=== PATIENT | male | born 1965 | race Caucasian/White ===

== ENCOUNTER 2020-09-29 14:18 | Emergency (ER) | payer BC ==
[2020-09-29 14:45] VITALS: BP 110/78; PULSE 78; RESP 16; TEMP 98
--- NOTE | 2020-09-29 15:51 | XR ---
Right foot HISTORY: Laceration 3 views of the right foot There is a comminuted fracture of distal phalanx of the first digit of the right foot. There is assoc iated soft tissue defect. Marked arthropathy present at the metatarsophalangeal joint of the first di git. There are degenerative changes within the foot, tibiotalar joint. There is an enthesophyte at in sertion of the Achilles tendon, plantar calcaneal spur noted. impression: Fracture as described.
[2020-09-29] MEDS ORDERED: GELATIN SPONGE,ABSORB (SMALL) 1 EACH SPONGE TOPICAL STA (16:48)
[2020-09-29] MEDS ORDERED: LIDOCAINE 1% INJ 10MG/ML (20 ML MDV) SQ ONE (16:48)
[2020-09-29] MEDS ORDERED: ceFAZolin 1,000 MG VIAL (IM USE) IM STA (16:48)
[2020-09-29] MEDS ORDERED: DIPH,PERTUS(ACELL)TETVAC-LF 0.5 ML VIAL IM ONE (17:49)
--- NOTE | 2020-09-29 17:51 | ED ---
General Adult HPI - General Chief complaint: Wound/Laceration Stated complaint: R foot injury Time Seen by Provider: 09/29/20 16:22 Source: patient Mode of arrival: ambulatory Limitations: no limitations - History of Present Illness Initial comments: 54-year-old male presents to the emergency room for a chief complaint of right great toe injury. Patient was mowing the lawn with a push mower when he was walking backwards and accidentally pulled it over his toe. She is not up-to-date on tetanus. He states it is painful to walk on the toe.Patient has no other complaints at this time including shortness of breath, chest pain, abdominal pain, nausea or vomiting, headache, or visual changes. - Related Data Previous Rx's Medication Instructions Recorded Cephalexin [Keflex] 500 mg PO Q6HR 10 Days #40 cap 09/29/20 Allergies Allergy/AdvReac Type Severity Reaction Status Date / Time No Known Allergies Allergy Verified 09/29/20 18:25 Review of Systems ROS Statement: Those systems with pertinent positive or pertinent negative responses have been documented in the HPI. ROS Other: All systems not noted in ROS Statement are negative. Past Medical History Past Medical History: Diabetes Mellitus History of Any Multi-Drug Resistant Organisms: None Reported Past Surgical History: Orthopedic Surgery Additional Past Surgical History / Comment(s): rt foot Past Psychological History: No Psychological Hx Reported Smoking Status: Current every day smoker Past Alcohol Use History: Occasional Past Drug Use History: None Reported General Exam Limitations: no limitations General appearance: alert, in no apparent distress Head exam: Present: atraumatic, normocephalic, normal inspection Eye exam: Present: normal appearance, PERRL, EOMI. Absent: scleral icterus, conjunctival injection, periorbital swelling ENT exam: Present: normal exam, mucous membranes moist Neck exam: Present: normal inspection, full ROM. Absent: tenderness, meningismus, lymphadenopathy Respiratory exam: Present: normal lung sounds bilaterally. Absent: respiratory distress, wheezes, rales, rhonchi, stridor Cardiovascular Exam: Present: regular rate, normal rhythm, normal heart sounds. Absent: systolic murmur, diastolic murmur, rubs, gallop, clicks GI/Abdominal exam: Present: soft, normal bowel sounds. Absent: distended, tenderness, guarding, rebound, rigid Extremities exam: Present: normal capillary refill (Capillary refill less than 2 seconds, DP pulse 2+ RLE. ), other (Patient has avulsion injury of nail and nailbed of the right great toe.) Course Vital Signs 09/29/20 14:42 Temperature 98.0 F Pulse Rate 78 Respiratory 16 Rate Blood Pressure 110/78 O2 Sat by Pulse 97 Oximetry - Reevaluation(s) Reevaluation #1: 09/29/20 17:[address] rosario, will see patient outpt Medical Decision Making - Medical Decision Making X-ray of the right great toe shows a comminuted fracture of the distal phalanx first digit of the right foot. Associated soft tissue defect. I did irrigate wound thoroughly with 2 L of sterile water as well as saline pressure irrigation. Patient was given IM Ancef. His tetanus was updated. Gelfoam was applied and toe was wrapped with gauze. he was placed in a walking shoe. Prescription for outpatient antibiotics as written. Case was discussed with Dr. Rosario who agrees with treatment plan and would like to see him outpatient. Patient will be referred. He will return here for any worsening symptoms. Disposition Clinical Impression: Open fracture of toe of right foot, Nailbed avulsion Disposition: HOME SELF-CARE Condition: Good Instructions (If sedation given, give patient instructions): Foot Fracture in A dults (ED) Additional Instructions: Please take Motrin and Tylenol for pain. If pain is severe take Tylenol 3. Take antibiotic as directed. Rest ice and elevate the right foot. Follow-up with orthopedics by calling first thing tomorrow morning. Return to the emergency room for any worsening symptoms. Prescriptions: Cephalexin [Keflex] 500 mg PO Q6HR 10 Days #40 cap Is patient prescribed a controlled substance at d/c from ED?: No Referrals: Yazan Gold DO [Primary Care Provider] - 1-2 days Deyvi Rosario MD [STAFF PHYSICIAN] - 1-2 days Time of Disposition: 18:25
[2020-09-29] MEDS ORDERED: GELATIN SPONGE,ABSORB (LARGE) 1 EACH SPONGE TOPICAL STA (18:07)
[2020-09-29] MEDS ORDERED: ACET/COD 300 MG/30 MG STARTER PACK 6 TAB BTL PO STA (18:26)
== END 2020-09-29 18:39 | disposition home or self-care (01) ==
LOC: EC 14:18
DX: S92.421B Displaced fracture of distal phalanx of right great toe, initial encounter for open fracture (principal); E11.9 Type 2 diabetes mellitus without complications; F17.200 Nicotine dependence, unspecified, uncomplicated; W23.1XXA Caught, crushed, jammed, or pinched between stationary objects, initial encounter; Y93.H2 Activity, gardening and landscaping
CPT/HCPCS: 99283 ×3; 73630; 90715; 96372; J0690; J2001

== ENCOUNTER → 2022-02-18 | Outpatient (CLI) | payer BC ==
--- NOTE | 2022-02-18 14:15 | XR ---
EXAMINATION TYPE: XR abdomen 2V DATE OF EXAM: 02/18/2022 2:06 PM INDICATION: Patient age:Male; 56 years old; Reason for study: Z18.10 Retained metal fragments; COMPARISON: None. TECHNIQUE: Two views of the abdomen were obtained. FINDINGS: Osteophyte formation of the hips bilaterally with cam deformities present of the femoral he ads. The bowel gas pattern is nonspecific without dilated loops of small or large bowel. The osseous structures are intact. Fecal material and gas are demonstrated throughout the colon and rectum. Mul tilevel disc degeneration of the spine. Left lateral pelvic calcification. No evidence of retained me jose manuel fragments. IMPRESSION: 1. Nonspecific bowel gas pattern without radiographic evidence for acute process. 2. 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 3. No evidence retained metal fragments.
--- NOTE | 2022-02-20 05:48 | MR ---
EXAMINATION TYPE: MR shoulder RT wo con DATE OF EXAM: 02/18/2022 COMPARISON: None. HISTORY: Rt shoulder pain when raising arm above head due to a fall x2 months TECHNIQUE: Multiplanar, multisequence imaging of the right shoulder is performed without contrast. FINDINGS: Rotator Cuff: Mild edema in the supraspinatus muscle bulk coronal image 16 for reference. Full-thickn ess focal tear distal supraspinatus tendon same image measuring 8 mm. Infraspinatus tendon intact wit h some surrounding fluid. Subscapularis tendon intact. Rotator cuff muscle bulk preserved. Acromioclavicular Joint: Moderate to severe narrowing and moderate capsular hypertrophy along with mo derate spurring. Loss of underlying fat plane. Glenohumeral Joint: Small to moderate size joint effusion. No significant spurring Labrum: Increased signal superior labrum consistent with degenerative tearing. Biceps Tendon: The long head of biceps is in normal location within bicipital groove. Bone marrow signal: No focal abnormal marrow signal is appreciated. Other: No additional significant abnormality is appreciated. IMPRESSION: 1. Full-thickness tear of the distal supraspinatus tendon. 2. 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
== END | disposition home or self-care (01) ==
LOC: RADMRIMAIN 13:46
PROVIDERS: ATTEND Family Medicine
DX: Z18.10 Retained metal fragments, unspecified (principal); M75.121 Complete rotator cuff tear or rupture of right shoulder, not specified as traumatic; M12.811 Other specific arthropathies, not elsewhere classified, right shoulder; G93.89 Other specified disorders of brain
CPT/HCPCS: 74019